=== PATIENT | female | born 1945 | race Caucasian/White ===

== ENCOUNTER 2017-03-17 18:29 | Emergency (ER) | payer MEDICARE ==
[2017-03-17] MEDS ORDERED: PRINIVIL20 MG PO (19:05)
[2017-03-17] MEDS ORDERED: SYNTHROID25 MCG PO (19:05)
== END 2017-03-17 19:00 | disposition short-term general hospital (02) ==
LOC: ER 18:29
DX: M79.89 Other specified soft tissue disorders (principal); T50.A95A Adverse effect of other bacterial vaccines, initial encounter; Z79.899 Other long term (current) drug therapy